=== PATIENT | female | born 1950 | race Caucasian/White ===

== ENCOUNTER 2016-10-11 06:36 | Inpatient (IN) | payer MEDICAID, MEDICARE ==
[~2016-10-11] VITALS: Ht 170.2 cm; Wt 103.3 kg
[2016-10-11] MEDS ORDERED: MORPHINE SULFATE 4 MG/ML, 1ML ONE (07:08)
[2016-10-11 07:23] LABS: IS PT STATUS REG ER OR PRE ER? YES
[2016-10-11] MEDS ORDERED: ONDANSETRON 2MG/ML, 2ML IVPush ONE (07:30)
[2016-10-11] MEDS: MORPHINE SULFATE 4 MG/ML, 1ML IVPush PRN ×2 (07:30→10:41)
[2016-10-11] MEDS ORDERED: PLEASE ENTER ALLERGIES MC SCH ×2 (07:30)
[2016-10-11] MEDS ORDERED: hydrALAzine 20 MG/ML, 1ML IVPush PRN (09:00)
[2016-10-11] MEDS ORDERED: DEXTROSE 4 GM TAB.CHEW PO PRN (09:00)
[2016-10-11] MEDS ORDERED: DOCUSATE 100 MG CAPSULE PO PRN (09:00)
[2016-10-11] MEDS ORDERED: GLUCAGON 1 MG IM PRN (09:00)
[2016-10-11] MEDS ORDERED: ACETAMINOPHEN 325 MG TABLET PO PRN (09:00)
[2016-10-11] MEDS ORDERED: LISINOPRIL 20 MG TABLET PO SCH (09:00)
[2016-10-11] MEDS ORDERED: DEXTROSE 50%, 50ML SYRINGE IVPush PRN (09:00)
[2016-10-11] MEDS: SODIUM CHLORIDE FLUSH 10ML SYR IVF SCH ×2 (09:00→21:10)
[2016-10-11] MEDS ORDERED: NITROGLYCERIN 0.4 MG BOTTLE (25 TABS) SL PRN (09:00)
[2016-10-11] MEDS ORDERED: FUROSEMIDE 20 MG/2 ML IV ONE (09:30)
[2016-10-11] MEDS ORDERED: MAGNESIUM SULFATE PMX 4GM/100M 100 ML IV ONE (10:00)
[2016-10-11 10:18] VITALS: BP 138/68
[2016-10-11] MEDS ORDERED: ALBUTEROL SULFATE 2.5 MG/3 ML NPPB PRN (10:30)
[2016-10-11] MEDS: HYDROcodone/APAP 5/325 TABLET PO PRN ×2 (10:56→19:50)
[2016-10-11] MEDS: ENOXAPARIN 40 MG/0.4 ML SQ SCH (10:56)
[2016-10-11] MEDS: ONDANSETRON 2MG/ML, 2ML IVPush PRN (10:57)
[2016-10-11] MEDS: INSULIN ASPART 100 UNITS/ML, PEN SQ-INSULIN SCH ×3 (11:00→21:09)
[2016-10-11] MEDS ORDERED: CALCIUM CARBONATE 500 MG TAB.CHEW PO PRN (13:30)
[2016-10-11] MEDS: OMEPRAZOLE 20 MG CAPSULE.DR PO SCH (13:50)
[2016-10-11 14:00] VITALS: BP 120/72
[2016-10-11 14:20] LABS: IS PT STATUS REG ER OR PRE ER? NO
[2016-10-11] MEDS: morphine SULFATE 10 MG/ML, 1ML IVPush PRN ×2 (14:55→22:19)
[2016-10-11] MEDS: LORazepam 2 MG/ML, 1ML IVPush PRN (17:01)
[2016-10-11] MEDS: SOTALOL 80MG TABLET PO SCH (18:07)
[2016-10-11 19:45] LABS: IS PT STATUS REG ER OR PRE ER? NO
[2016-10-11 19:49] VITALS: BP 119/64
[2016-10-11] MEDS: SIMVASTATIN 20 MG TABLET PO SCH (21:10)
[2016-10-12] VITALS (7 sets, daily range): BP systolic 96–174; BP diastolic 55–87
[2016-10-12] MEDS: morphine SULFATE 10 MG/ML, 1ML IVPush PRN ×4 (01:59→20:28)
[2016-10-12] MEDS: LORazepam 2 MG/ML, 1ML IVPush PRN ×3 (03:01→18:33)
[2016-10-12] MEDS: ASPIRIN 325 MG TABLET EC PO SCH (05:37)
[2016-10-12] MEDS: SOTALOL 80MG TABLET PO SCH ×2 (05:37→19:14)
[2016-10-12 05:41] LABS: BLOOD UREA NITROGEN 20 mg/dL (7-18)
[2016-10-12 05:44] LABS: ASPARTATE AMINO TRANSFERASE 25 U/L (15-37)
[2016-10-12] MEDS: OMEPRAZOLE 20 MG CAPSULE.DR PO SCH ×2 (07:30→11:09)
[2016-10-12] MEDS: ONDANSETRON 2MG/ML, 2ML IVPush PRN ×2 (07:57→18:19)
[2016-10-12] MEDS: INSULIN ASPART 100 UNITS/ML, PEN SQ-INSULIN SCH ×4 (08:00→20:39)
[2016-10-12] MEDS ORDERED: REGADENOSON 0.4 MG/5 ML SYRINGE ONE (08:13)
[2016-10-12] MEDS: SODIUM CHLORIDE FLUSH 10ML SYR IVF SCH (11:08)
[2016-10-12] MEDS: ENOXAPARIN 40 MG/0.4 ML SQ SCH (11:09)
[2016-10-12] MEDS ORDERED: SODIUM CHLORIDE 0.9% 1,000 ML IV SCH (12:45)
[2016-10-12] MEDS ORDERED: LIDOCAINE 2%, 20ML ONE (16:03)
[2016-10-12] MEDS ORDERED: VERAPAMIL 2.5 MG/ML, 2ML ONE (16:03)
[2016-10-12] MEDS ORDERED: BIVALIRUDIN 250 MG ONE (16:03)
[2016-10-12] MEDS ORDERED: FENTANYL PF 100 MCG/2ML ONE (16:03)
[2016-10-12] MEDS ORDERED: HEPARIN 1,000 UNITS/ML, 10ML ONE (16:03)
[2016-10-12] MEDS ORDERED: MIDAZOLAM 1 MG/ML, 5ML ONE (16:03)
[2016-10-12] MEDS: HYDROcodone/APAP 5/325 TABLET PO PRN (18:21)
[2016-10-12] MEDS: SODIUM CHLORIDE 0.9% 1,000 ML IV SCH (18:27)
[2016-10-12] MEDS: SIMVASTATIN 20 MG TABLET PO SCH (20:27)
[2016-10-13 02:00] VITALS: BP 132/68
[2016-10-13] MEDS: SODIUM CHLORIDE 0.9% 1,000 ML IV SCH (02:00)
[2016-10-13] MEDS: SODIUM CHLORIDE FLUSH 10ML SYR IVF SCH ×3 (02:27→20:59)
[2016-10-13] MEDS: HYDROcodone/APAP 5/325 TABLET PO PRN ×5 (04:38→23:57)
[2016-10-13 05:37] LABS: BLOOD UREA NITROGEN 17 mg/dL (7-18)
[2016-10-13] MEDS: SOTALOL 80MG TABLET PO SCH ×2 (06:21→18:29)
[2016-10-13] MEDS: ASPIRIN 325 MG TABLET EC PO SCH (06:21)
[2016-10-13] MEDS ORDERED: PROM25TA10 PO (06:41)
[2016-10-13] MEDS ORDERED: POTA10TA11 PO (06:41)
[2016-10-13] MEDS ORDERED: FLUT9.9S NAS (06:41)
[2016-10-13] MEDS ORDERED: PROM25AM6 PO (06:41)
[2016-10-13] MEDS ORDERED: LISI1TAB7 PO (06:41)
[2016-10-13] MEDS ORDERED: SOTA80TA8 PO (06:41)
[2016-10-13] MEDS ORDERED: CLON1TAB23 PO (06:41)
[2016-10-13] MEDS ORDERED: OMEP20CA14 PO (06:41)
[2016-10-13] MEDS ORDERED: TRAM50TA2 PO (06:41)
[2016-10-13] MEDS ORDERED: METF-649 PO (06:41)
[2016-10-13] MEDS ORDERED: LEVO50TA PO (06:41)
[2016-10-13] MEDS ORDERED: SIMV20TA3 PO (06:41)
[2016-10-13] MEDS ORDERED: HYDR-3307 PO (06:41)
[2016-10-13] MEDS ORDERED: GLYB5TAB3 PO (06:41)
[2016-10-13 06:44] VITALS: BP 103/62
[2016-10-13] MEDS: INSULIN ASPART 100 UNITS/ML, PEN SQ-INSULIN SCH ×4 (07:00→21:00)
[2016-10-13] MEDS: OMEPRAZOLE 20 MG CAPSULE.DR PO SCH (08:34)
[2016-10-13] MEDS: ENOXAPARIN 40 MG/0.4 ML SQ SCH (10:29)
[2016-10-13] MEDS: LEVOTHYROXINE 50 MCG TABLET PO SCH (10:29)
[2016-10-13] MEDS: LORazepam 1MG TABLET PO PRN ×2 (10:29→21:56)
[2016-10-13 13:12] VITALS: BP 125/70
[2016-10-13 13:37] LABS: PATH.CAST-FLAG NOT PRESENT; SPERM-FLAG NOT PRESENT; SRC-FLAG NOT PRESENT; XTAL-FLAG NOT PRESENT; YLC-FLAG NOT PRESENT
[2016-10-13] MEDS: ONDANSETRON 2MG/ML, 2ML IVPush PRN (14:03)
[2016-10-13 18:28] VITALS: BP 147/66
[2016-10-13 20:12] VITALS: BP 133/78
[2016-10-13] MEDS: SIMVASTATIN 20 MG TABLET PO SCH (20:57)
[2016-10-14 01:49] VITALS: BP 126/77
[2016-10-14] MEDS: HYDROcodone/APAP 5/325 TABLET PO PRN ×3 (05:28→14:01)
[2016-10-14] MEDS: LEVOTHYROXINE 50 MCG TABLET PO SCH (05:29)
[2016-10-14] MEDS: SOTALOL 80MG TABLET PO SCH (05:29)
[2016-10-14] MEDS: ASPIRIN 325 MG TABLET EC PO SCH (05:29)
[2016-10-14 06:03] LABS: ASPARTATE AMINO TRANSFERASE 26 U/L (15-37); BLOOD UREA NITROGEN 14 mg/dL (7-18)
[2016-10-14] MEDS: INSULIN ASPART 100 UNITS/ML, PEN SQ-INSULIN SCH ×2 (07:00→11:00)
[2016-10-14 07:53] VITALS: BP 145/74
[2016-10-14] MEDS: OMEPRAZOLE 20 MG CAPSULE.DR PO SCH (08:31)
[2016-10-14] MEDS: SODIUM CHLORIDE FLUSH 10ML SYR IVF SCH (08:31)
[2016-10-14] MEDS: ONDANSETRON 2MG/ML, 2ML IVPush PRN (09:42)
[2016-10-14] MEDS: LORazepam 1MG TABLET PO PRN ×2 (09:51→14:01)
[2016-10-14] MEDS ORDERED: ATOR20TA PO (13:19)
[2016-10-14] MEDS ORDERED: LISI-170 PO (13:19)
[2016-10-14 13:40] VITALS: BP 122/67
== END 2016-10-14 16:19 | disposition home or self-care (01) | DRG 287 ==
LOC: ED 08:35 → EDIP 08:36 → ED 09:02 → 4EST 09:34 → 5SO 10-12 17:21 → DCLOUNGE 10-14 15:42
PROVIDERS: ADMIT Family Medicine; ATTEND Family Medicine
PROC: 4A023N7 Measurement of Cardiac Sampling and Pressure, Left Heart, Percutaneous Approach (ICD-10-PCS; principal; 2016-10-12)
PROC: B2111ZZ Fluoroscopy of Multiple Coronary Arteries using Low Osmolar Contrast (ICD-10-PCS; 2016-10-12)
PROC: B2151ZZ Fluoroscopy of Left Heart using Low Osmolar Contrast (ICD-10-PCS; 2016-10-12)
DX: R07.89 Other chest pain (principal); J96.10 Chronic respiratory failure, unspecified whether with hypoxia or hypercapnia; J98.11 Atelectasis; D68.69 Other thrombophilia; I50.9 Heart failure, unspecified; E78.5 Hyperlipidemia, unspecified; E11.9 Type 2 diabetes mellitus without complications; K21.9 Gastro-esophageal reflux disease without esophagitis; E03.9 Hypothyroidism, unspecified; D64.9 Anemia, unspecified; E66.9 Obesity, unspecified; G89.4 Chronic pain syndrome; I11.0 Hypertensive heart disease with heart failure; I48.0 Paroxysmal atrial fibrillation; J44.9 Chronic obstructive pulmonary disease, unspecified; K58.9 Irritable bowel syndrome, unspecified; Z82.49 Family history of ischemic heart disease and other diseases of the circulatory system; Z83.3 Family history of diabetes mellitus; Z99.81 Dependence on supplemental oxygen; Z68.35 Body mass index [BMI] 35.0-35.9, adult; Z88.1 Allergy status to other antibiotic agents; Z79.84 Long term (current) use of oral hypoglycemic drugs; Z79.899 Other long term (current) drug therapy
CPT/HCPCS: 36415; 76700; 78452; 80048; 80053; 80061; 81001; 82962; 83036; 83690; 83735; 84100; 84443; 84484; 85025; 87077; 87086; 87186; 93005; 93017; 93306; 93458; 96374; 99156; 99157; C1894; J0583; J1644; J1650; J1815; J2250; J2405; J2785; J3010; J3490; A9502; C9898; J1940; J2060; J2270; J3475; J7030; Q9967

== ENCOUNTER → 2018-05-08 | Outpatient (CLI) | payer MEDICARE, MEDICAID ==
[~2018-05-08] MED LIST: ATOR20TA PO; CLON1TAB23 PO; FLUT9.9S NAS; GLYB5TAB3 PO; HYDR-3307 PO; LEVO50TA PO; LISI-170 PO; LISI1TAB7 PO; METF-649 PO; OMEP20CA14 PO; POTA10TA11 PO; PROM25AM6 PO; PROM25TA10 PO; SIMV20TA3 PO; SOTA80TA8 PO; TRAM50TA2 PO
== END | disposition home or self-care (01) ==
LOC: SUSANVILLE 08:00
PROVIDERS: ATTEND Internal Medicine Cardiovascular Disease
DX: I08.1 Rheumatic disorders of both mitral and tricuspid valves (principal); I10 Essential (primary) hypertension; E11.9 Type 2 diabetes mellitus without complications; J44.9 Chronic obstructive pulmonary disease, unspecified
CPT/HCPCS: 93306

== ENCOUNTER 2020-08-14 07:34 | Day surgery (SDC) | payer MEDICARE, MEDICAID ==
[~2020-08-14] VITALS: Ht 170.2 cm; Wt 111.8 kg
[~2020-08-14 07:34] MED LIST changes: +HYDR-3248 PO; -HYDR-3307 PO; +LISI1TAB20 PO; -LISI1TAB7 PO; -METF-649 PO; +METF-734 PO; -OMEP20CA14 PO; +OMEP20CA20 PO; +SIMV20TA19 PO; -SIMV20TA3 PO
[2020-08-14] MEDS ORDERED: FENO160T PO (08:17)
[2020-08-14] MEDS ORDERED: BACL-19 PO (08:17)
[2020-08-14] MEDS ORDERED: TRAZ-175 PO (08:17)
[2020-08-14] MEDS ORDERED: PANT40TA6 PO (08:17)
[2020-08-14] MEDS ORDERED: LISI-170 PO (08:17)
[2020-08-14] MEDS ORDERED: ACET-1600 PO (08:22)
[2020-08-14] MEDS ORDERED: APIX5TAB PO (08:22)
[2020-08-14] MEDS ORDERED: POLY17PO5 PO (08:22)
[2020-08-14] MEDS ORDERED: ALBU8.5H8 INH (08:22)
[2020-08-14] MEDS ORDERED: CHOL400C11 PO (08:22)
[2020-08-14] MEDS ORDERED: ONDA4TAB13 SL (08:22)
[2020-08-14] MEDS ORDERED: AMLO-150 PO (08:22)
[2020-08-14 08:27] VITALS: BP 156/71
[2020-08-14 08:39] LABS: BASOPHILS % (AUTO) 2 % (0-1); EOSINOPHILS % (AUTO) 3 % (1-7); LYMPHOCYTES % (AUTO) 33 % (22-44); MEAN CORPUSCULAR HEMOGLOBIN 30.8 pg (27.0-34.8); MEAN CORPUSCULAR HGB CONC 33.8 g/dL (32.4-35.8); MEAN PLATELET VOLUME 9.1 fL (7.4-10.4); MONOCYTES % (AUTO) 11 % (2-9); NEUTROPHILS % (AUTO) 51 % (42-75); PLATELET COUNT 194 x10^3/uL (130-400); RED BLOOD COUNT 4.47 x10^6/uL (3.82-5.3)
[2020-08-14 08:40] LABS: MD NO
[2020-08-14 08:50] LABS: ANION GAP 6 mmol/L (5-15); CHLORIDE 110 mmol/L (98-107)
[2020-08-14] MEDS ORDERED: FENTANYL PF 100 MCG/2ML ONE (09:25)
[2020-08-14] MEDS ORDERED: MIDAZOLAM 1 MG/ML, 5ML ONE (09:25)
[2020-08-14] MEDS ORDERED: LIDOCAINE 2%, 20ML ONE (09:25)
== END 2020-08-14 14:43 | disposition home or self-care (01) ==
LOC: CACL 07:34
PROVIDERS: ATTEND Internal Medicine Cardiovascular Disease
DX: I20.8 Other forms of angina pectoris (principal); I10 Essential (primary) hypertension; I48.0 Paroxysmal atrial fibrillation; I27.20 Pulmonary hypertension, unspecified; I08.1 Rheumatic disorders of both mitral and tricuspid valves; J44.9 Chronic obstructive pulmonary disease, unspecified; E11.9 Type 2 diabetes mellitus without complications; E03.9 Hypothyroidism, unspecified; K21.9 Gastro-esophageal reflux disease without esophagitis; F41.9 Anxiety disorder, unspecified; E66.3 Overweight; Z68.38 Body mass index [BMI] 38.0-38.9, adult; Z79.01 Long term (current) use of anticoagulants; Z79.890 Hormone replacement therapy; Z79.899 Other long term (current) drug therapy; Z87.891 Personal history of nicotine dependence; Z88.2 Allergy status to sulfonamides
CPT/HCPCS: 36415; 80048; 85025; 93458; 99156; C1760; C1769; C1894; J2250; J3010; Q9967